=== PATIENT | male | born 1945 | race American Indian/Alaskan Native ===

== ENCOUNTER 2019-05-25 13:47 | Emergency (ER) | payer MEDICARE ==
[2019-05-25] MEDS ORDERED: ACETAMINOPHEN 500 MG TAB PO ONE (14:36)
--- NOTE | 2019-05-25 15:10 | Emergency Department Report ---
ED Fall HPI - General Chief Complaint: Fall Stated Complaint: FALL Time Seen by Provider: 05/25/19 14:36 Source: patient Mode of arrival: Stretcher Limitations: No Limitations - History of Present Illness Initial Comments: 74 yo male with hx of SAH, dementia PVD who presents from SNF s/p fall. He has bilateral knee pain. No head trauma or LOC. KNown hx of chronic knee pain with DJD. Has mild knee pain. Normally takes tylenol He slipped and fell while at the SNF. He normally uses a walker. However, walker is not functional. MD Complaint: fall -: This afternoon Fall From: standing When Fall Occurred: 1 hour [employer] Fall Witnessed: yes, by living facility s Place Fall Occurred: correction/SNF Loss of Consciousness: none Prolonged Down Time?: no Symptoms Prior to Fall: none Location - Extremities: Left: Knee, Right: Knee Severity: mild Context: tripped/slipped Associated Symptoms: denies - Related Data Home Medications Medication Instructions Recorded Confirmed Last Taken Depakote Dr 125 mg PO Q12HR 03/26/18 03/26/18 Unknown [place] 5-325 Tablet 5 mg PO Q6HR PRN 03/26/18 03/26/18 Unknown Potassium Chloride 20 meq PO BID 03/26/18 03/26/18 Unknown Tizanidine HCl 4 mg PO BID 03/26/18 03/26/18 Unknown Xanax 0.5 mg PO DAILY 03/26/18 03/26/18 Unknown Xanax TAB 0.25 mg PO HS 03/26/18 03/26/18 Unknown Zoloft 25 mg PO HS 03/26/18 03/26/18 Unknown Previous Rx's Medication Instructions Recorded Last Taken Type Keppra 1,000 mg PO Q12HR #60 03/27/18 Unknown Rx Pantoprazole [Protonix] 40 mg PO BID 30 Days #60 tablet 03/27/18 Unknown Rx Allergies Allergy/AdvReac Type Severity Reaction Status Date / Time No Known Allergies Allergy Verified 05/25/19 14:03 ED Review of Systems ROS: Stated complaint: FALL Other details as noted in HPI Constitutional: denies: fever, malaise Respiratory: denies: cough Cardiovascular: denies: chest pain Gastrointestinal: denies: abdominal pain Neurological: denies: headache ED Past Medical Hx - Past Medical History Previous Medical History?: Yes Hx Hypertension: Yes Hx Diabetes: Yes Hx Seizures: Yes Additional medical history: Alzheimer's, dementia, PVD, subarachnoid hemmorrhage, major depressive disorder - Surgical History Past Surgical History?: Yes - Social History Smoking Status: Never Smoker Substance Use Type: None - Medications Home Medications: Home Medications Medication Instructions Recorded Confirmed Last Taken Type Depakote Dr 125 mg PO Q12HR 03/26/18 03/26/18 Unknown History [place] 5-325 Tablet 5 mg PO Q6HR PRN 03/26/18 03/26/18 Unknown History Potassium Chloride 20 meq PO BID 03/26/18 03/26/18 Unknown History Tizanidine HCl 4 mg PO BID 03/26/18 03/26/18 Unknown History Xanax 0.5 mg PO DAILY 03/26/18 03/26/18 Unknown History Xanax TAB 0.25 mg PO HS 03/26/18 03/26/18 Unknown History Zoloft 25 mg PO HS 03/26/18 03/26/18 Unknown History Keppra 1,000 mg PO Q12HR #60 03/27/18 Unknown Rx Pantoprazole [Protonix] 40 mg PO BID 30 Days #60 tablet 03/27/18 Unknown Rx ED Physical Exam - General Limitations: No Limitations General appearance: alert, in no apparent distress - Head Head exam: Present: atraumatic, normocephalic - ENT ENT exam: Present: normal orophraynx, mucous membranes moist - Neck Neck exam: Present: normal inspection, full ROM - Respiratory Respiratory exam: Present: normal lung sounds bilaterally. Absent: respiratory distress, wheezes, rales, rhonchi - Cardiovascular Cardiovascular Exam: Present: regular rate, normal rhythm, normal heart sounds - GI/Abdominal GI/Abdominal exam: Present: soft. Absent: distended, tenderness, guarding, rebound - Extremities Exam Extremities exam: Present: other (bilateral knees: FROM, no deformity, no la xity, able to weight bear and ambulate with minimal assistance) - Neurological Exam Neurological exam: Present: alert, oriented X3 - Psychiatric Psychiatric exam: Present: normal affect, normal mood - Skin Skin exam: Present: warm, dry, intact, normal color ED Course Vital Signs 05/25/19 14:26 Temperature 97.7 F Pulse Rate 68 Respiratory 16 Rate Blood Pressure 111/72 [Left] O2 Sat by Pulse 97 Oximetry ED Medical Decision Making - Medical Decision Making Bilateral knee pain after ground level fall. No obvious head trauma. No LOC. No evidence of severe traumatic injury. [facility] Critical care attestation.: If time is entered above; I have spent that time in minutes in the direct care of this critically ill patient, excluding procedure time. ED Disposition Clinical Impression: Bilateral knee pain, Fall from ground level Disposition: DC-01 TO HOME OR SELFCARE Is pt being admited?: No Does the pt Need Aspirin: No Condition: Stable Instructions: Fall Prevention (ED) Referrals: REBECA BALLARD MD [Staff Physician] - as needed
[2019-05-25 15:26] VITALS: BP 131/61
== END 2019-05-25 16:33 | disposition home or self-care (01) ==
LOC: ED 13:47
DX: M25.561 Pain in right knee (principal); M25.562 Pain in left knee; I10 Essential (primary) hypertension; E11.9 Type 2 diabetes mellitus without complications; G30.9 Alzheimer's disease, unspecified; F02.80 Dementia in other diseases classified elsewhere, unspecified severity, without behavioral disturbance, psychotic disturbance, mood disturbance, and anxiety; W18.30XA Fall on same level, unspecified, initial encounter; Y93.89 Activity, other specified; Y92.89 Other specified places as the place of occurrence of the external cause; Y99.8 Other external cause status
CPT/HCPCS: 99283

== ENCOUNTER 2019-08-21 13:51 | Emergency (ER) | payer MEDICARE ==
[2019-08-21 14:14] VITALS: BP 155/88
--- NOTE | 2019-08-21 14:26 | Emergency Department Report ---
ED Altered Mental Status HPI - General Chief Complaint: Altered Mental Status Stated Complaint: COVID/BEHAVIORAL Time Seen by Provider: 08/21/19 14:18 Source: EMS Mode of arrival: Stretcher Limitations: Altered Mental Status - History of Present Illness Initial Comments: This is a 74-year-old male with history of dementia, peripheral vascular disease, hypertension, diabetes mellitus, subarachnoid hemorrhage, major depressive disorder who presents from [facility] with aggressive behavior towards staff. Known COVID 19 Positive. He appears to be coughing toward patients and staff members. Mr. De Luna has bilateral leg pain according to his report. Otherwise history is limited. MD Complaint: altered mental status -: days(s) (1) Severity: moderate Consistency of Symptoms: waxing and waning Context: other (Known infection) Associated Symptoms: other (Bilateral leg pain) - Related Data Home Medications Medication Instructions Recorded Confirmed Last Taken Depakote Dr 125 mg PO Q12HR 03/26/18 03/26/18 Unknown [place] 5-325 Tablet 5 mg PO Q6HR PRN 03/26/18 03/26/18 Unknown Potassium Chloride 20 meq PO BID 03/26/18 03/26/18 Unknown Tizanidine HCl 4 mg PO BID 03/26/18 03/26/18 Unknown Xanax 0.5 mg PO DAILY 03/26/18 03/26/18 Unknown Xanax TAB 0.25 mg PO HS 03/26/18 03/26/18 Unknown Zoloft 25 mg PO HS 03/26/18 03/26/18 Unknown Previous Rx's Medication Instructions Recorded Last Taken Type Keppra 1,000 mg PO Q12HR #60 03/27/18 Unknown Rx Pantoprazole [Protonix] 40 mg PO BID 30 Days #60 tablet 03/27/18 Unknown Rx Allergies Allergy/AdvReac Type Severity Reaction Status Date / Time No Known Allergies Allergy Verified 05/25/19 14:03 ED Review of Systems ROS: Stated complaint: COVID/BEHAVIORAL Other details as noted in HPI Comment: All other systems reviewed and negative Constitutional: denies: fever Respiratory: denies: cough Cardiovascular: denies: chest pain ED Past Medical Hx - Past Medical History Previous Medical History?: Yes Hx Hypertension: Yes Hx Diabetes: Yes Hx Seizures: Yes Additional medical history: Alzheimer's, dementia, PVD, subarachnoid hemmorrhage, major depressive disorder, Stroke 2005 - Surgical History Past Surgical History?: No - Social History Smoking Status: Never Smoker Substance Use Type: None - Medications Home Medications: Home Medications Medication Instructions Recorded Confirmed Last Taken Type Depakote Dr 125 mg PO Q12HR 03/26/18 03/26/18 Unknown History [place] 5-325 Tablet 5 mg PO Q6HR PRN 03/26/18 03/26/18 Unknown History Potassium Chloride 20 meq PO BID 03/26/18 03/26/18 Unknown History Tizanidine HCl 4 mg PO BID 03/26/18 03/26/18 Unknown History Xanax 0.5 mg PO DAILY 03/26/18 03/26/18 Unknown History Xanax TAB 0.25 mg PO HS 03/26/18 03/26/18 Unknown History Zoloft 25 mg PO HS 03/26/18 03/26/18 Unknown History Keppra 1,000 mg PO Q12HR #60 03/27/18 Unknown Rx Pantoprazole [Protonix] 40 mg PO BID 30 Days #60 tablet 03/27/18 Unknown Rx ED Physical Exam - General Limitations: Altered Mental Status General appearance: alert, in no apparent distress, other (Laying under sheet calm) - Head Head exam: Present: atraumatic, normocephalic - Eye Eye exam: Present: normal appearance - ENT ENT exam: Present: mucous membranes moist - Neck Neck exam: Present: normal inspection, full ROM. Absent: tenderness, meningismus - Respiratory Respiratory exam: Present: normal lung sounds bilaterally. Absent: respiratory distress, wheezes, rales, rhonchi - Cardiovascular Cardiovascular Exam: Present: regular rate, normal rhythm. Absent: rubs, gallop - GI/Abdominal GI/Abdominal exam: Present: soft, normal bowel sounds. Absent: distended, tenderness, guarding, rebound - Rectal Rectal exam: Present: deferred - Extremities Exam Extremities exam: Present: normal inspection - Neurological Exam Neurological exam: Present: alert, other (Oriented to name and place) - Psychiatric Psychiatric exam: Present: agitated - Skin Skin exam: Present: warm, dry, intact, normal color. Absent: rash ED Course Vital Signs 08/21/19 14:13 Temperature 99.0 F Pulse Rate 76 Blood Pressure 155/88 [Left] O2 Sat by Pulse 100 Oximetry - Lab Data Result diagrams: 08/21/19 15:04 08/21/19 14:56 Lab Results 08/21/19 08/21/19 08/21/19 Range/Units 14:56 14:56 14:56 WBC (4.5-11.0) K/mm3 RBC (3.65-5.03) M/mm3 Hgb (11.8-15.2) gm/dl Hct (35.5-45.6) % MCV (84-94) fl MCH (28-32) pg MCHC (32-34) % RDW (13.2-15.2) % Plt Count (140-440) K/mm3 Lymph % (Auto) (13.4-35.0) % [place] % (Auto) (0.0-7.3) % Eos % (Auto) (0.0-4.3) % Baso % (Auto) (0.0-1.8) % Lymph # (1.2-5.4) K/mm3 [place] # (0.0-0.8) K/mm3 Eos # (0.0-0.4) K/mm3 Baso # (0.0-0.1) K/mm3 Seg Neutrophils % (40.0-70.0) % Seg Neutrophils # (1.8-7.7) K/mm3 PT 13.7 (12.2-14.9) Sec. INR 1.04 (0.87-1.13) D-Dimer 413.04 H (0-234) ng/mlDDU Sodium 141 (137-145) mmol/L Potassium 4.5 (3.6-5.0) mmol/L Chloride 101.9 (98-107) mmol/L Carbon Dioxide 20 L (22-30) mmol/L Anion Gap 24 mmol/L BUN 11 (9-20) mg/dL Creatinine 1.0 (0.8-1.5) mg/dL Estimated GFR > 60 ml/min BUN/Creatinine Ratio 11 % Glucose 120 H (75-100) mg/dL Lactic Acid 2.00 (0.7-2.0) mmol/L Calcium 9.0 (8.4-10.2) mg/dL Ferritin (13.0-400.0) ng/mL Total Bilirubin 0.20 (0.1-1.2) mg/dL AST 22 (5-40) units/L ALT 20 (7-56) units/L Alkaline Phosphatase 105 (35-129) units/L Ammonia (25-60) umol/L Lactate Dehydrogenase (91-180) units/L Troponin T < 0.010 (0.00-0.029) ng/mL C-Reactive Protein (0.00-1.30) mg/dL Total Protein 8.3 H (6.3-8.2) g/dL Albumin 4.0 (3.9-5) g/dL Albumin/Globulin Ratio 0.9 % TSH (0.270-4.200) mlU/mL Salicylates (2.8-20.0) mg/dL Acetaminophen (10.0-30.0) ug/mL 08/21/19 08/21/19 08/21/19 Range/Units 14:56 14:56 14:56 WBC (4.5-11.0) K/mm3 RBC (3.65-5.03) M/mm3 Hgb (11.8-15.2) gm/dl Hct (35.5-45.6) % MCV (84-94) fl MCH (28-32) pg MCHC (32-34) % RDW (13.2-15.2) % Plt Count (140-440) K/mm3 Lymph % (Auto) (13.4-35.0) % [place] % (Auto) (0.0-7.3) % Eos % (Auto) (0.0-4.3) % Baso % (Auto) (0.0-1.8) % Lymph # (1.2-5.4) K/mm3 [place] # (0.0-0.8) K/mm3 Eos # (0.0-0.4) K/mm3 Baso # (0.0-0.1) K/mm3 Seg Neutrophils % (40.0-70.0) % Seg Neutrophils # (1.8-7.7) K/mm3 PT (12.2-14.9) Sec. INR (0.87-1.13) D-Dimer (0-234) ng/mlDDU Sodium (137-145) mmol/L Potassium (3.6-5.0) mmol/L Chloride (98-107) mmol/L Carbon Dioxide (22-30) mmol/L Anion Gap mmol/L BUN (9-20) mg/dL Creatinine (0.8-1.5) mg/dL Estimated GFR ml/min BUN/Creatinine Ratio % Glucose (75-100) mg/dL Lactic Acid (0.7-2.0) mmol/L Calcium (8.4-10.2) mg/dL Ferritin (13.0-400.0) ng/mL Total Bilirubin (0.1-1.2) mg/dL AST (5-40) units/L ALT (7-56) units/L Alkaline Phosphatase (35-129) units/L Ammonia 32.0 (25-60) umol/L Lactate Dehydrogenase (91-180) units/L Troponin T (0.00-0.029) ng/mL C-Reactive Protein (0.00-1.30) mg/dL Total Protein (6.3-8.2) g/dL Albumin (3.9-5) g/dL Albumin/Globulin Ratio % TSH 1.200 (0.270-4.200) mlU/mL Salicylates < 0.3 L (2.8-20.0) mg/dL Acetaminophen (10.0-30.0) ug/mL 08/21/19 08/21/19 08/21/19 Range/Units 14:56 14:56 14:56 WBC (4.5-11.0) K/mm3 RBC (3.65-5.03) M/mm3 Hgb (11.8-15.2) gm/dl Hct (35.5-45.6) % MCV (84-94) fl MCH (28-32) pg MCHC (32-34) % RDW (13.2-15.2) % Plt Count (140-440) K/mm3 Lymph % (Auto) (13.4-35.0) % [place] % (Auto) (0.0-7.3) % Eos % (Auto) (0.0-4.3) % Baso % (Auto) (0.0-1.8) % Lymph # (1.2-5.4) K/mm3 [place] # (0.0-0.8) K/mm3 Eos # (0.0-0.4) K/mm3 Baso # (0.0-0.1) K/mm3 Seg Neutrophils % (40.0-70.0) % Seg Neutrophils # (1.8-7.7) K/mm3 PT (12.2-14.9) Sec. INR (0.87-1.13) D-Dimer (0-234) ng/mlDDU Sodium (137-145) mmol/L Potassium (3.6-5.0) mmol/L Chloride (98-107) mmol/L Carbon Dioxide (22-30) mmol/L Anion Gap mmol/L BUN (9-20) mg/dL Creatinine (0.8-1.5) mg/dL Estimated GFR ml/min BUN/Creatinine Ratio % Glucose (75-100) mg/dL Lactic Acid (0.7-2.0) mmol/L Calcium (8.4-10.2) mg/dL Ferritin 39.9 (13.0-400.0) ng/mL Total Bilirubin (0.1-1.2) mg/dL AST (5-40) units/L ALT (7-56) units/L Alkaline Phosphatase (35-129) units/L Ammonia (25-60) umol/L Lactate Dehydrogenase 286 H (91-180) units/L Troponin T (0.00-0.029) ng/mL C-Reactive Protein 8.20 H (0.00-1.30) mg/dL Total Protein (6.3-8.2) g/dL Albumin (3.9-5) g/dL Albumin/Globulin Ratio % TSH (0.270-4.200) mlU/mL Salicylates (2.8-20.0) mg/dL Acetaminophen < 5.0 L (10.0-30.0) ug/mL 08/21/19 Range/Units 15:04 WBC 5.7 (4.5-11.0) K/mm3 RBC 4.40 (3.65-5.03) M/mm3 Hgb 11.9 (11.8-15.2) gm/dl Hct 37.2 (35.5-45.6) % MCV 85 (84-94) fl MCH 27 L (28-32) pg MCHC 32 (32-34) % RDW 19.4 H (13.2-15.2) % Plt Count 293 (140-440) K/mm3 Lymph % (Auto) 12.4 L (13.4-35.0) % [place] % (Auto) 8.9 H (0.0-7.3) % Eos % (Auto) 0.5 (0.0-4.3) % Baso % (Auto) 0.3 (0.0-1.8) % Lymph # 0.7 L (1.2-5.4) K/mm3 [place] # 0.5 (0.0-0.8) K/mm3 Eos # 0.0 (0.0-0.4) K/mm3 Baso # 0.0 (0.0-0.1) K/mm3 Seg Neutrophils % 77.9 H (40.0-70.0) % Seg Neutrophils # 4.4 (1.8-7.7) K/mm3 PT (12.2-14.9) Sec. INR (0.87-1.13) D-Dimer (0-234) ng/mlDDU Sodium (137-145) mmol/L Potassium (3.6-5.0) mmol/L Chloride (98-107) mmol/L Carbon Dioxide (22-30) mmol/L Anion Gap mmol/L BUN (9-20) mg/dL Creatinine (0.8-1.5) mg/dL Estimated GFR ml/min BUN/Creatinine Ratio % Glucose (75-100) mg/dL Lactic Acid (0.7-2.0) mmol/L Calcium (8.4-10.2) mg/dL Ferritin (13.0-400.0) ng/mL Total Bilirubin (0.1-1.2) mg/dL AST (5-40) units/L ALT (7-56) units/L Alkaline Phosphatase (35-129) units/L Ammonia (25-60) umol/L Lactate Dehydrogenase (91-180) units/L Troponin T (0.00-0.029) ng/mL C-Reactive Protein (0.00-1.30) mg/dL Total Protein (6.3-8.2) g/dL Albumin (3.9-5) g/dL Albumin/Globulin Ratio % TSH (0.270-4.200) mlU/mL Salicylates (2.8-20.0) mg/dL Acetaminophen (10.0-30.0) ug/mL - Radiology Data Radiology results: report reviewed CT chest: Minimal interstitial pneumonitis CT head: No acute intracranial hemorrhage chronic extensive microvascular angiopathy unchanged from prior exam performed on 03/25/2018 - Medical Decision Making 1. Combative behavior towards staff, patient has history of dementia. He has been calm cooperative in the emergency department. Mr. De Luna is ambulatory alert verbal. He was easily redirectable with conversation. 2. COVID 19 infection, patient is asymptomatic. Normal ferritin mildly elevated d-dimer. I anticipate the patient will have an uneventful recovery. 3. Bilateral leg pain without evidence of trauma or infection I suspect patient has mild claudication due to peripheral vascular disease. Critical care attestation.: If time is entered above; I have spent that time in minutes in the direct care of this critically ill patient, excluding procedure time. ED Disposition Clinical Impression: Dementia, COVID-19 virus detected, PVD (peripheral vascular disease) Disposition: DC/TX-70 ANOTHER TYPE HLTHCARE Is pt being admited?: No Does the pt Need Aspirin: No Condition: Stable
[2019-08-21 15:11] LABS: Basophils % (Auto) 0.3 % (0.0-1.8); Eosinophils % (Auto) 0.5 % (0.0-4.3); Hematocrit 37.2 % (35.5-45.6); Hemoglobin 11.9 gm/dl (11.8-15.2); Lymphocytes # (Auto) 0.7 K/mm3 (1.2-5.4); Lymphocytes % (Auto) 12.4 % (13.4-35.0); Mean Corpuscular HGB Conc 32 % (32-34); Mean Corpuscular Volume 85 fl (84-94); Monocytes # (Auto) 0.5 K/mm3 (0.0-0.8); Monocytes % (Auto) 8.9 % (0.0-7.3); Platelet Count 293 K/mm3 (140-440); Red Cell Distribution Width 19.4 % (13.2-15.2)
[2019-08-21 15:21] LABS: INR 1.04 (0.87-1.13)
[2019-08-21 15:38] LABS: Alanine Aminotransferase 20 units/L (7-56); BUN/Creatinine Ratio 11; Blood Urea Nitrogen 11 mg/dL (9-20); C-Reactive Protein 8.2 mg/dL (0.00-1.30); Hemolysis Index 7
--- NOTE | 2019-08-21 16:04 | Cat Scan Report ---
CT head/brain wo con INDICATION / CLINICAL INFORMATION: 74 years Male; Altered Mental Status. TECHNIQUE: Routine CT head without contrast. All CT scans at this location are performed using CT dos e reduction for ALARA by means of automated exposure control. COMPARISON: The study is compared to the previous CT of 03/25/2018. FINDINGS: BRAIN / INTRACRANIAL CONTENTS: There is extensive cerebral white matter disease most consistent with microvascular angiopathy. The findings appear to correlate with the earlier CT. There is an old lacun ar infarct along the head of the right caudate. There is moderate cerebral atrophy with mild prominen ce of the ventricular system which appears stable. There is no definitive CT evidence of acute intrac ranial hemorrhage or significant mass effect. ORBITS: No significant abnormality of visualized orbits. SINUSES / MASTOIDS: No significant abnormality the visualized paranasal sinuses or mastoid air cells. CRANIOCERVICAL JUNCTION: No significant abnormality. ADDITIONAL FINDINGS: The findings are again indicative of small a brianna hole within the right frontal calvarium. The reconstructed images are of nondiagnostic quality. IMPRESSION: 1. There is continued extensive microvascular angiopathy without CT evidence of acute intracranial he morrhage. Signer Name: Joseph Whittaker MD Signed: 08/21/2019 4:00 PM Workstation Name: [id number]
--- NOTE | 2019-08-21 16:09 | Cat Scan Report ---
CT of the chest without contrast INDICATION: Shortness of breath, positive COVID-19 COMPARISON: None FINDINGS: There is no significant hilar or mediastinal adenopathy. There is minimal vascular calcific ation without aneurysm. No pleural effusions are seen. Upper abdomen shows no significant abnormaliti es. Lung windows show relatively extensive COPD changes with subpleural blebs and areas of emphysema in the upper lobes. There are only a few faint groundglass areas of consolidation throughout both serafin gs. No areas of alveolar consolidation, cavitation or abscess. No significant skeletal lesion. IMPRESSION: Minimal interstitial pneumonitis. Automated exposure control was utilized to diminish radiation dose. Signer Name: Luis Enrique Peters MD Signed: 08/21/2019 4:04 PM Workstation Name: [id number]
--- NOTE | 2019-08-21 16:38 | XRay Report ---
CHEST 1 VIEW 2:56 PM INDICATION / CLINICAL INFORMATION: Altered Mental Status. COMPARISON: 03/25/18. FINDINGS: SUPPORT DEVICES: None. HEART / MEDIASTINUM: The heart size and pulmonary vasculature are normal. The aorta is moderately tor tuous and mildly ectatic, unchanged. LUNGS / PLEURA: Interstitial parenchymal disease in the right mid-upper lung laterally appears new. N o pleural effusion. No pneumothorax. ADDITIONAL FINDINGS: No significant additional findings. IMPRESSION: Mild new parenchymal disease in the right mid-upper lung laterally raises the possibility of early pneumonia. Signer Name: Vikash Squires MD Signed: 08/21/2019 4:34 PM Workstation Name: [id number]
== END 2019-08-21 18:35 | disposition other institution (70) ==
LOC: ED 13:51
DX: U07.1 COVID-19 (principal); F03.90 Unspecified dementia, unspecified severity, without behavioral disturbance, psychotic disturbance, mood disturbance, and anxiety; I73.89 Other specified peripheral vascular diseases; I10 Essential (primary) hypertension; E11.9 Type 2 diabetes mellitus without complications; G30.9 Alzheimer's disease, unspecified; F02.80 Dementia in other diseases classified elsewhere, unspecified severity, without behavioral disturbance, psychotic disturbance, mood disturbance, and anxiety; Z79.899 Other long term (current) drug therapy
CPT/HCPCS: 36415; 70450; 71045; 71250; 80053; 80320; 82140; 82728; 83615; 84145; 84443; 84484; 85025; 85379; 85610; 86140; 87040; G0480

== ENCOUNTER 2019-11-26 18:09 | Emergency (ER) | payer MEDICARE ==
--- NOTE | 2019-11-26 19:49 | Emergency Department Report ---
Blank Doc - Documentation Documentation: 74-year-old male that presents with bilatearl leg pain redness with skin peeli ng. Exam: foul odor noted to bilaeral legs with skin peeliing and some redness This initial assessment/diagnostic orders/clinical plan/treatment(s) is/are subject to change based on patient's health status, clinical progression and re- assessment by fellow clinical providers in the ED. Further treatment and workup at subsequent clinical providers discretion. Patient/guardians urged not to elope from the ED as their condition may be serious if not clinically assessed and managed. Initial orders include: 1- Patient sent to MAIN ED for further evaluation and treatment 2- labs
[2019-11-26 20:50] LABS: Hematocrit 37.2 % (35.5-45.6); Hemoglobin 11.5 gm/dl (11.8-15.2); Mean Corpuscular HGB Conc 31 % (32-34); Mean Corpuscular Volume 83 fl (84-94); Platelet Count 346 K/mm3 (140-440); Red Blood Count 4.46 M/mm3 (3.65-5.03)
[2019-11-26 20:55] LABS: Red Cell Distribution Width 23.7 % (13.2-15.2)
[2019-11-26 21:02] LABS: Alanine Aminotransferase 16 units/L (7-56); Albumin 3.9 g/dL (3.9-5); BUN/Creatinine Ratio 16; Blood Urea Nitrogen 13 mg/dL (9-20); Calcium 8.5 mg/dL (8.4-10.2); Hemolysis Index 34
--- NOTE | 2019-11-26 22:18 | Emergency Department Report ---
ED Rash HPI - HPI Chief Complaint: Extremity Injury, Lower Stated Complaint: LEG PAIN Time Seen by Provider: 11/26/19 19:47 Duration: 3 months Location: Lower Extremities (Bilateral) Suspected Cause: Unknown Rash Symptoms: Yes Itching, Yes Peeling, No Fever, No Malaise Severity: moderate Other History: Mr. De Luna is a 74-year-old male with history of Alzheimer's disease, psychotic disorder, conversion disorder, major depressive disorder, subarachnoid hemorrhage who presents with of bilateral 3 months leg rash and ir ritation. He has scaly skin which causes itchiness with skin peeling. He wants something that will "heal it". He is a resident of [facility]. ED Review of Systems ROS: Stated complaint: LEG PAIN Other details as noted in HPI Comment: Unobtainable due to pts medical conditions (Dementia) ED Past Medical Hx - Past Medical History Previous Medical History?: Yes Hx Hypertension: Yes Hx Diabetes: Yes Hx Seizures: Yes Additional medical history: Alzheimer's, dementia, PVD, subarachnoid hemmorrhage, major depressive disorder, Stroke 2006 - Surgical History Past Surgical History?: No - Social History Smoking Status: Never Smoker Substance Use Type: None - Medications Home Medications: Home Medications Medication Instructions Recorded Confirmed Last Taken Type Depakote Dr 125 mg PO Q12HR 03/26/18 03/26/18 Unknown History [place] 5-325 Tablet 5 mg PO Q6HR PRN 03/26/18 03/26/18 Unknown History Potassium Chloride 20 meq PO BID 03/26/18 03/26/18 Unknown History Tizanidine HCl 4 mg PO BID 03/26/18 03/26/18 Unknown History Xanax 0.5 mg PO DAILY 03/26/18 03/26/18 Unknown History Xanax TAB 0.25 mg PO HS 03/26/18 03/26/18 Unknown History Zoloft 25 mg PO HS 03/26/18 03/26/18 Unknown History Keppra 1,000 mg PO Q12HR #60 03/27/18 Unknown Rx Pantoprazole [Protonix] 40 mg PO BID 30 Days #60 tablet 03/27/18 Unknown Rx Hydrocortisone 1% [Hydrocortisone 1 applicatio TP TID 14 Days #1 tube 11/26/19 Unknown Rx 1% CREAM] Rash Exam - Exam General: Vital signs noted. No distress. Alert and acting appropriately. HEENT: No Periorbital Edema, No Conjuctival Injection, No Chemosis, No Perioral Edema, No Tongue Edema, No Uvular Edema, No Compromised Airway, No Drooling Lungs: Yes Good Air Exchange, No Wheezes Heart: Yes Regular Skin: No Other (Diffuse scaling cracked skin irritation bilateral lower extremit y) ED Course Vital Signs 11/26/19 18:28 Temperature 98.3 F Pulse Rate 76 Respiratory 98 H Rate Blood Pressure 167/104 O2 Sat by Pulse 99 Oximetry ED Medical Decision Making - Lab Data Result diagrams: 11/26/19 20:02 11/26/19 20:02 Laboratory Results - last 24 hr 11/26/19 11/26/19 20:02 20:02 WBC 4.7 RBC 4.46 Hgb 11.5 L Hct 37.2 MCV 83 L MCH 26 L MCHC 31 L RDW 23.7 H Plt Count 346 Sodium 144 Potassium 4.1 Chloride 106.2 Carbon Dioxide 22 Anion Gap 20 BUN 13 Creatinine 0.8 Estimated GFR > 60 BUN/Creatinine Ratio 16 Glucose 126 H Calcium 8.5 Total Bilirubin < 0.20 AST 22 ALT 16 Alkaline Phosphatase 84 NT-Pro-B Natriuret Pep 181.3 Total Protein 7.3 Albumin 3.9 Albumin/Globulin Ratio 1.1 - Medical Decision Making Mr. De Luna presents with severe xerosis of both lower extremities. Rx: hydrocortisone cream outpatient treatment deferred to PCP Critical care attestation.: If time is entered above; I have spent that time in minutes in the direct care of this critically ill patient, excluding procedure time. ED Disposition Clinical Impression: Xerotic eczema Disposition: DC/TX-70 ANOTHER TYPE HLTHCARE Is pt being admited?: No Does the pt Need Aspirin: No Condition: Stable Instructions: Eczema (ED), Stasis Dermatitis (ED) Prescriptions: Hydrocortisone 1% [Hydrocortisone 1% CREAM] 1 applicatio TP TID 14 Days #1 tube
[2019-11-26] MEDS ORDERED: HYDROcodone/ACETAMINOPHEN 5-325 MG TAB PO ONE (22:19)
[2019-11-26 22:22] VITALS: BP 152/89
[2019-11-27 01:20] LABS: Anisocytosis 2+; Basophils % (Manual) 0 % (0.0-1.8); Hypochromasia 1+; Total Cells Counted 100
[2019-11-27 01:22] LABS: Ovalocytes Rare; Platelet Estimate Consistent w Auto; Schistocytes Rare
== END 2019-11-27 01:16 | disposition other institution (70) ==
LOC: ED 18:09
DX: L85.3 Xerosis cutis (principal); I10 Essential (primary) hypertension; E11.9 Type 2 diabetes mellitus without complications; F31.9 Bipolar disorder, unspecified; Z79.899 Other long term (current) drug therapy
CPT/HCPCS: 36415; 80053; 82140; 83880; 85007; 85025; 99283

== ENCOUNTER 2020-01-31 11:28 | Emergency (ER) | payer MEDICARE ==
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
[2020-01-31 12:57] LABS: Hematocrit 38.6 % (35.5-45.6); Hemoglobin 13.2 gm/dl (11.8-15.2); Mean Corpuscular HGB Conc 34 % (32-34); Mean Corpuscular Volume 90 fl (84-94); Platelet Count 247 K/mm3 (140-440); Red Cell Distribution Width 22.5 % (13.2-15.2)
[2020-01-31 13:00] LABS: BUN/Creatinine Ratio 15; Blood Urea Nitrogen 12 mg/dL (9-20); Calcium 8.4 mg/dL (8.4-10.2); Hemolysis Index 25
[2020-01-31 13:15] LABS: Bilirubin,Urine NEG (Negative); Blood,Urine SM (Negative); Color,Urine Yellow (Yellow); Mucus,Urine FEW /HPF
[2020-01-31 13:23] LABS: Amphetamine Screen,Urine Negative; Benzodiazepines Screen,Urine Negative; Cannabinoid Screen,Urine Negative; Cocaine Screen,Urine Negative; Methadone Screen,Urine Negative; Opiate Screen,Urine Negative
[2020-01-31 14:31] LABS: Anisocytosis 1+; Hypochromasia 1+; Large Platelets Rare; Ovalocytes Rare; Platelet Estimate Consistent w Auto; Total Cells Counted 100
[2020-01-31] MEDS ORDERED: ZIPRASIDONE MESYLATE 20 MG VIAL IM ONE (15:35)
[2020-01-31] MEDS ORDERED: WATER FOR INJ Sterile (PF) 10 ML ONE (15:38)
[2020-01-31 19:09] VITALS: BP 163/82
== END 2020-01-31 18:37 | disposition home or self-care (01) ==
LOC: ED 11:28
DX: F69 Unspecified disorder of adult personality and behavior (principal); I10 Essential (primary) hypertension; E11.9 Type 2 diabetes mellitus without complications; R56.9 Unspecified convulsions; F17.200 Nicotine dependence, unspecified, uncomplicated; Z79.899 Other long term (current) drug therapy
CPT/HCPCS: 36415; 80048; 80307; 81001; 85007; 85025; 96372; 99284; J3486; 80320; G0480